=== PATIENT | male | born 1975 | race Caucasian/White ===

== ENCOUNTER 2019-01-04 15:45 | Emergency (ER) | payer SELFPAY ==
[~2019-01-04] VITALS: Ht 185.4 cm; Wt 79.5 kg
[2019-01-04] MEDS ORDERED: DiphenhydrAMINE HCL 50 MG/ML VIAL IVP ONE (16:15)
[2019-01-04] MEDS ORDERED: FAMOTIDINE 10 MG/ML 2 ML VIAL IVP ONE (16:15)
[2019-01-04] MEDS ORDERED: MethylPREDNISolone SOD SUCC 125 MG/2 ML VIAL IVP ONE (16:15)
[2019-01-04 18:08] VITALS: BP 119/64
== END 2019-01-04 18:41 | disposition home or self-care (01) ==
LOC: EMS 15:46
DX: L50.9 Urticaria, unspecified (principal)
CPT/HCPCS: 96374; 96375; 99283; J1200; J2930; J3490